=== PATIENT | male | born 1970 | race Caucasian/White ===

== ENCOUNTER 2019-06-22 13:54 | Inpatient (IN) | payer SELFPAY ==
[2019-06-22] VITALS (8 sets, daily range): BP systolic 119–161; BP diastolic 87–101
[~2019-06-22] VITALS: Ht 177.8 cm; Wt 122.2 kg
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
--- OUTSIDE RECORDS SUMMARY | 2019-06-22 14:03 | XMS REPORT | Continuity of Care Document ---
Author Organization Unknown Address Unknown Phone Unavailable Allergies There is no data. Medications There is no data. Problems There is no data. Procedures There is no data. Results There is no data. Encounters ACCT No. Visit Date/Time Discharge Status Pt. Type Provider Facility Loc./Unit Complaint [id number] 06/05/2019 10:40:00 06/05/2019 23:59: 59 CLS Outpatient [facility] [address]
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
[2019-06-22 14:13] LABS: BASOPHILS % (AUTO) 0 % (0-10); EOSINOPHILS # (AUTO) 0.2 10^3/uL (0.0-0.3); EOSINOPHILS % (AUTO) 3 % (0-10); HEMATOCRIT 25 % (40-54); LYMPHOCYTES # (AUTO) 1.4 X 10^3 (1.0-4.0); LYMPHOCYTES % (AUTO) 19 % (12-44); MEAN CORPUSCULAR HEMOGLOBIN 16 PG (25-34); MEAN CORPUSCULAR HGB CONC 26 G/DL (32-36); MEAN CORPUSCULAR VOLUME 61 FL (80-99); MEAN PLATELET VOLUME 9.2 FL (7.4-10.4); MONOCYTES # (AUTO) 0.6 X 10^3 (0.0-1.0); MONOCYTES % (AUTO) 8 % (0-12); NEUTROPHILS # (AUTO) 5.1 X 10^3 (1.8-7.8); NEUTROPHILS % (AUTO) 70 % (42-75); PLATELET COUNT 342 10^3/uL (130-400); RED CELL DISTRIBUTION WIDTH 19.5 % (10.0-14.5); WHITE BLOOD COUNT 7.3 10^3/uL (4.3-11.0)
--- NOTE | 2019-06-22 14:13 | ED Dyspnea ---
General Stated Complaint: BLOOD CLOT Source of Information: Patient Exam Limitations: No Limitations History of Present Illness Date Seen by Provider: June 22, 2019 Time Seen by Provider: 14:10 Initial Comments To ER from [facility] in [place] with reports of worsening shortness of breath. He has COPD and has a chronic cough and shortness of breath. He was seen at [facility] in [place] today diagnosed with DVT by ultrasound in the right lower extremity. Provider was out of the office and he was referred here for management. He does report an unintentional weight loss over the past few weeks, no history of cancer. 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 Father of lung cancer. Right leg has been swollen and painful for about 3 weeks Timing/Duration: Increasing, Other Severity: Moderate Associated Symptoms: Cough Allergies and Home Medications Allergies Coded Allergies: No Known Drug Allergies (Unverified , 06/22/19) Home Medications Albuterol Sulfate 1 Puff Puff, 2 PUFF INH Q4H, (Reported) 1 PUFF = 90 MCG Patient Home Medication List Home Medication List Reviewed: Yes Review of Systems Review of Systems Constitutional: see HPI EENTM: see HPI Respiratory: see HPI, cough, short of breath Cardiovascular: no symptoms reported Genitourinary: no symptoms reported Musculoskeletal: see HPI Skin: no symptoms reported Psychiatric/Neurological: No Symptoms Reported Endocrine: No Symptoms Reported Hematologic/Lymphatic: No Symptoms Reported Past Iiyvxxo-Bgybmb-Dtgaju Hx Patient Social History Recent Foreign Travel: No Contact w/Someone Who Travel: No Physical Exam Vital Signs Vital Signs - First Documented 06/22/19 14:13 Temp 36.7 Pulse 92 Resp 18 B/P (MAP) 145/100 (115) Pulse Ox 97 O2 Delivery Room Air Capillary Refill : Height, Weight, BMI Height: '" Weight: lbs. oz. kg; BMI Method: General Appearance: No Apparent Distress, WD/WN, Other (lungs are clear with good air movement no distress heart rate 87 oxygen 97% room air respiratory rate 16 blood pressure 145/100.) HEENT: PERRL/EOMI, Normal ENT Inspection Neck: Full Range of Motion, Normal Inspection Respiratory: Normal Breath Sounds, No Accessory Muscle Use, No Respiratory Distress Cardiovascular: Regular Rate, Rhythm, Normal Peripheral Pulses Gastrointestinal: Non Tender, Soft Extremity: Normal Capillary Refill, Normal Inspection Neurologic/Psychiatric: Alert, Oriented x3 Skin: Normal Color, Warm/Dry Progress/Results/Core Measures Results/Orders Lab Results Laboratory Tests Test 06/22/19 14:03 06/22/19 14:26 Range/Units White Blood Count 7.3 4.3-11.0 10^3/uL Red Blood Count 4.12 L 4.35-5.85 10^6/uL Hemoglobin 6.6 *L 13.3-17.7 G/DL Hematocrit 25 L 40-54 % Mean Corpuscular Volume 61 L 80-99 FL Mean Corpuscular Hemoglobin 16 L 25-34 PG Mean Corpuscular Hemoglobin Concent 26 L 32-36 G/DL Red Cell Distribution Width 19.5 H 10.0-14.5 % Platelet Count 342 130-400 10^3/uL Mean Platelet Volume 9.2 7.4-10.4 FL Neutrophils (%) (Auto) 70 42-75 % Lymphocytes (%) (Auto) 19 12-44 % Monocytes (%) (Auto) 8 0-12 % Eosinophils (%) (Auto) 3 0-10 % Basophils (%) (Auto) 0 0-10 % Neutrophils # (Auto) 5.1 1.8-7.8 X 10^3 Lymphocytes # (Auto) 1.4 1.0-4.0 X 10^3 Monocytes # (Auto) 0.6 0.0-1.0 X 10^3 Eosinophils # (Auto) 0.2 0.0-0.3 10^3/uL Basophils # (Auto) 0.0 0.0-0.1 10^3/uL Sodium Level 138 135-145 MMOL/L Potassium Level 4.0 3.6-5.0 MMOL/L Chloride Level 106 98-107 MMOL/L Carbon Dioxide Level 24 21-32 MMOL/L Anion Gap 8 5-14 MMOL/L Blood Urea Nitrogen 19 H 7-18 MG/DL Creatinine 1.76 H 0.60-1.30 MG/DL Estimat Glomerular Filtration Rate 41 BUN/Creatinine Ratio 11 Glucose Level 135 H 70-105 MG/DL Calcium Level 8.6 8.5-10.1 MG/DL Corrected Calcium 8.8 8.5-10.1 MG/DL Total Bilirubin 0.8 0.1-1.0 MG/DL Aspartate Amino Transf (AST/SGOT) 15 5-34 U/L Alanine Aminotransferase (ALT/SGPT) 10 0-55 U/L Alkaline Phosphatase 100 40-136 U/L Total Protein 6.6 6.4-8.2 GM/DL Albumin 3.7 3.2-4.5 GM/DL Prothrombin Time 13.9 12.2-14.7 SEC INR Comment 1.0 0.8-1.4 D-Dimer 1.56 H 0.00-0.49 UG/ML My Orders Orders - YARI GOSS APRN Fibrin Degradation Products (06/22/19 14:06) Cbc With Automated Diff (06/22/19 14:06) Comprehensive Metabolic Panel (06/22/19 14:06) Ed Iv/Invasive Line Start (06/22/19 14:06) Protime With Inr (06/22/19 14:08) Red Cells Leukocytes Reduced (06/22/19 14:20) Type And Screen (06/22/19 14:20) Iron Tibc %Sat & Ferritin (06/22/19 14:50) BNP (06/22/19 14:51) Chest 1 View, Ap/Pa Only (06/22/19 14:51) Ekg Tracing (06/22/19 14:51) Vital Signs/I&O 06/22/19 14:13 Temp 36.7 Pulse 92 Resp 18 B/P (MAP) 145/100 (115) Pulse Ox 97 O2 Delivery Room Air Departure Communication (Admissions) Time/Spoke to Admitting Phy: 15:00 He does report a history of ulcerative colitis. He's had to receive a blood transfusion because of this in the past. Takes no medication for it. Based on Cr, weight, height, and age, his estimated gfr is 66 mL/min which does not require change in lovenox dose. Spoke with Dr Phoenix, would like therapeutic dose lovenox, will dc if he develops bleeding. Specifically questioned the patient about bloody stools and he is adamant there are no dark or grossly bloody stools. 1426- R called her I did obtain right lower extremity venous Doppler ultrasound which was done today first 2019 at [facility]. This has been faxed to us and shows an occlusive thrombus in the right femoral vein extending into the popliteal vein. Spoke with Dr. Cho, we'll admit, transfuse 1 unit of packed red cells, Venofer 200 mg IV every 48 hours. Impression Primary Impression: Right leg DVT Qualified Codes: I82.401 - Acute embolism and thrombosis of unspecified deep veins of right lower extremity Disposition: ADMITTED INPATIENT Condition: Stable Admissions Decision to Admit Reason: Admit from ER (General) Decision to Admit/Date: June 22, 2019 Time/Decision to Admit Time: 15:01 Departure-Patient Inst. Referrals: [facility] (PCP[facility]Family) Primary Care Physician YARI GOSS LUMBER CUTTER June 22, 2019 14:13
[2019-06-22 14:19] LABS: HEMOGLOBIN 6.6 G/DL (13.3-17.7)
--- NOTE | 2019-06-22 14:28 | NUR ---
Blood band placed on patient. Type and Screen drawn on patient.
--- NOTE | 2019-06-22 14:29 | NUR ---
Patient states he has a history of ulcerative colitis. He states he has had previous blood transfusions.
[2019-06-22] MEDS ORDERED: HOLD METFORMIN - RECEIVED CONTRAST 20 ML VIAL IV SCH (14:30)
[2019-06-22] MEDS ORDERED: CATHETER FLUSH 10 ML SYR IV PRN (14:30)
[2019-06-22] MEDS ORDERED: IOHEXOL 350 MG/ML 100 ML (OMNIPAQUE 350) VIAL IV ONE (14:30)
[2019-06-22] MEDS ORDERED: NS 100 ML (IVPB) BAG IV ONE (14:30)
[2019-06-22] MEDS ORDERED: RT-ALBUINH INH (14:32)
[2019-06-22 14:34] LABS: ALBUMIN 3.7 GM/DL (3.2-4.5); BILIRUBIN,TOTAL 0.8 MG/DL (0.1-1.0); CALCIUM 8.6 MG/DL (8.5-10.1); CREATININE SERUM 1.76 MG/DL (0.60-1.30); TOTAL PROTEIN 6.6 GM/DL (6.4-8.2)
[2019-06-22 14:48] LABS: FIBRIN DEGRADATION PRODUCTS 1.56 UG/ML (0.00-0.49); PROTHROMBIN TIME PATIENT 13.9 SEC (12.2-14.7)
[2019-06-22] MEDS ORDERED: FURO-125 PO (15:01)
--- NOTE | 2019-06-22 15:48 | Diagnostic Imaging Report ---
INDICATION: Shortness of breath and COPD. TIME OF EXAM: 03:14 p.m. COMPARISON: No prior studies are available for comparison. FINDINGS: The heart does appear to be mildly enlarged. Lungs are clear. No infiltrates are seen. The pulmonary vascularity is normal. No effusion or pneumothorax is detected. IMPRESSION: No acute cardiopulmonary process is detected. Dictated by: Dictated on workstation # [id number]
--- OUTSIDE RECORDS SUMMARY | 2019-06-22 15:49 | XMS REPORT | Continuity of Care Document ---
Author Organization Unknown Address Unknown Phone Unavailable Allergies Active Description Code Type Severity Reaction Onset Reported/Identified Relationship to Patient Clinical Status Yes No Allergy Information Available [id number] Drug Allergy Unknown N/A 020 Yes No Known Drug Allergies [id number] Drug Allergy Unknown N/A 06/22/2019 Medications There is no data. Problems There is no data. Procedures There is no data. Results Test Result Range Complete blood count (CBC) with automate d white blood cell (WBC) differential - 06/22/19 14:03 Blood leukocytes automated count (number/volume) 7.3 10*3/uL 4.3-11.0 Blood erythrocytes automated count (number/volume) 4.12 10*6/uL 4.35-5.85 Venous blood hemoglobin measurement (mass/volume) 6.6 g/dL 13.3-17.7 Blood hematocrit (volume fraction) 25 % 40-54 Automated erythrocyte mean corpuscular volume 61 [ foz_us] 80-99 Automated erythrocyte mean corpuscular h emoglobin (mass per erythrocyte) 16 pg 25-34 Automated erythrocyte mean corpuscular h emoglobin concentration measurement (mass/volume) 26 g/dL 32-36 Automated erythrocyte distribution width ratio 19. 5 % 10.0- 14.5 Automated blood platelet count (count/volume) 342 10*3/uL 130-400 Automated blood platelet mean volume measurement 9.2 [foz_us] 7.4-10.4 Automated blood neutrophils/100 leukocytes 70 % 42-75 Automated blood lymphocytes/100 leukocytes 19 % 12-44 Blood monocytes/100 leukocytes 8 % 0-12 Automated blood eosinophils/100 leukocytes 3 % 0-10 Automated blood basophils/100 leukocytes 0 % 0-10 Blood neutrophils automated count (number/volume) 5.1 10*3 1.8-7.8 Blood lymphocytes automated count (number/volume) 1.4 10*3 1.0-4.0 Blood monocytes automated count (number/volume) 0. 6 10*3 0.0-1.0 Automated eosinophil count 0.2 10*3/uL 0 .0-0.3 Automated blood basophil count (count/volume) 0.0 10*3/uL 0.0-0.1 Comprehensive metabolic panel - 06/22/19 14:03 Serum or plasma sodium measurement (moles/volume) 138 mmol/L 135-145 Serum or plasma potassium measurement (moles/volume) 4.0 mmol/L 3.6-5.0 Serum or plasma chloride measurement (moles/volume) 106 mmol/L 98-107 Carbon dioxide 24 mmol/L 21-32 Serum or plasma anion gap determination (moles/volume) 8 mmol/L 5-14 Serum or plasma urea nitrogen measurement (mass/volume ) 19 mg/dL 7-18 Serum or plasma creatinine measurement (mass/volume) 1.76 mg/dL 0.60-1.30 Serum or plasma urea nitrogen/creatinine mass ratio 11 NRG Serum or plasma creatinine measurement w ith calculation of estimated glomerular filtration rate 41 NRG Serum or plasma glucose measurement (mass/volume) 135 mg/dL 70-105 Serum or plasma calcium measurement (mass/volume) 8.6 mg/dL 8.5-10.1 Serum or plasma total bilirubin measurement (mass/volu me) 0.8 mg/dL 0.1-1.0 Serum or plasma alkaline phosphatase marivel surement (enzymatic activity/volume) 100 U/L 40-136 Serum or plasma aspartate aminotransfera se measurement (enzymatic activity/volume) 15 U/L 5-34 Serum or plasma alanine aminotransferase measurement (enzymatic activity/volume) 10 U/L 0-55 Serum or plasma protein measurement (mass/volume) 6.6 g/dL 6.4-8.2 Serum or plasma albumin measurement (mass/volume) 3.7 g/dL 3.2-4.5 CALCIUM CORRECTED 8.8 mg/dL 8.5-10.1 Serum or plasma lithium measurement (mol es/volume) - 06/22/19 14:03 BNP PT 448.6 pg/mL <100.0 RED CELLS LEUKO REDUCED AS1 - 06/22/19 1 4:26 RED CELLS LEUKO REDUCED AS1 R RUTH NRG Blood type T Indirect antibody screen pa pascual - 06/22/19 14:26 WRISTBAND NUMBER [id number] NRG ABO+Rh group AN NRG Blood group antibody screen NEGATIVE NR G PT panel in platelet poor plasma by coag ulation assay - 06/22/19 14:26 Prothrombin time (PT) in platelet poor plasma by coagu lation assay 13.9 s 12.2-14.7 INR in platelet poor plasma or blood by coagulation as say 1.0 0.8-1.4 Fibrin D-dimer FEU measurement in platel et poor plasma (mass/volume) - 06/22/19 14:26 Fibrin D-dimer FEU measurement in platelet poor plasma (mass/volume) 1.56 ug/mL 0.00-0.49 Encounters ACCT No. Visit Date/Time Discharge Status Pt. Type Provider Facility Loc./Unit Complaint [id number] 06/05/2019 10:40:00 06/05/2019 23:59: 59 CLS Outpatient [facility] [address] [id number] 06/22/2019 14:53:[address] Inpatient JENNIFER HAYS DO [facility] ICU DVT,ANEMIA
--- NOTE | 2019-06-22 15:50 | NUR ---
Report given to Agustina MENDIETA in ICU.
[2019-06-22] MEDS ORDERED: NS (IVPB) 100 ML ONE (16:07)
[2019-06-22] MEDS ORDERED: ENOXAPARIN 300 MG/3 ML (LOVENOX) MULTI-DOSE VIAL SQ SCH (16:30)
[2019-06-22] MEDS ORDERED: NS IV 500 ML 500 ML IV SCH (16:45)
[2019-06-22] MEDS ORDERED: IRON SUCROSE 200 MG/10 ML (VENOFER) VIAL IV SCH (17:00)
[2019-06-22] MEDS ORDERED: RT-ALBUTEROL/IPRATROPIUM 3 ML (DUONEB) VIAL INH SCH (18:00)
[2019-06-22] MEDS: NS IV 1000 ML 1,000 ML IV SCH (18:07)
--- NOTE | 2019-06-22 18:41 | CONSULTATION REPORT ---
DATE OF SERVICE: 06/22/2019 ATTENDING PRIMARY CARE PHYSICIAN: [facility]. ADMITTING PHYSICIAN: Dr. Cho. HISTORY OF PRESENT ILLNESS: The patient is a 48-year-old male who presented to [facility] and underwent an ultrasound due to right lower extremity edema and pain and was found to have deep vein thrombosis. He states that this has been swollen and painful for the past three weeks. He has not had this before in the past. He also does report worsening shortness of breath; however, he does have a history of COPD. Upon admission, he was also found to be anemic with hemoglobin of 6.6. He does not report any history of gastroesophageal reflux disease nor peptic ulcer disease. He does not report any epigastric pain or burning sensation. He also does not report any episodes of red blood per rectum nor any dark tarry stools. He is also scheduled to undergo a CT angiography of the chest as well. PAST MEDICAL HISTORY: COPD. PAST SURGICAL HISTORY: None reported. ALLERGIES: No known drug allergies. MEDICATIONS: Albuterol MDI 2 puffs q.4 hours p.r.n. 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 Negative alcohol. FAMILY HISTORY: Father with lung cancer. VITAL SIGNS: Temperature 36.7, blood pressure 145/100, pulse 92, respirations 18, pulse oximetry 97% on room air. REVIEW OF SYSTEMS: A well-nourished male currently in no acute distress. He is not experiencing any shortness of breath or no difficulty breathing at rest. He does have a chronic cough, which is nonproductive. No hemoptysis. No history of gastroesophageal reflux disease as well as peptic ulcer disease and no episodes of hematemesis, no coffee ground emesis. He has had some constipation in the past. He does not report any red blood per rectum nor any dark tarry stools. No fever, chills and states that he has lost some weight in the past 3 weeks. All other review of systems negative. PHYSICAL EXAMINATION: CHEST: A few scattered rales and rhonchi bilaterally with distant breath sounds. HEART: Regular, no murmurs. EXTREMITIES: Right lower extremity swelling. Positive Homans sign, posterior tibial and dorsalis pedis pulses palpable bilaterally. HEENT: No scleral icterus. NECK: No cervical lymphadenopathy. ABDOMEN: Soft, nontender, nondistended. SKIN: Warm, dry. LABORATORY DATA: Hemoglobin 6.6, hematocrit 65, platelets 342, WBC 7.3. BUN 19, creatinine 1.76. BNP 448.6. D-dimer 1.56. ASSESSMENT AND PLAN: A 48-year-old male with right lower extremity DVT, shortness of breath as well as anemia and previous history of underlying respiratory medical comorbidities. It is unsure if this anemia is an acute on chronic entity. Due to the findings of the lower extremity edema as well as possible pulmonary embolism. We will recommend starting him on therapeutic doses of Lovenox. However, if he does develop clinical bleeding, we will discontinue all anticoagulation and proceed with further workup, which may include an EGD and colonoscopy. Also, if there is a contraindication to anticoagulation he will need an inferior vena cava filter placement. Job ID: [id number] DocumentID: [id number] Dictated Date: 06/22/2019 18:11:17 Payroll Tax Specialist Date: 06/22/2019 18:40:34 Dictated By: ERIK TELLEZ MD
--- NOTE | 2019-06-22 20:46 | History & Physical-Hospitalist ---
History of Present Illness HPI/Chief Complaint CC: Anemia with right acute DVT of lower extremity HPI: This is a 48yoWM who presented to the ER upon the direction of his PCP Andrea Phillips due to dx of right lower extremity DVT in need of w/u due to dyspnea. Patient was found to have hgb 6.6 in need of transfusion. Patient states he has colitis but does not take meds for that condition. Patient is not pleased about staying in the hospital because he just received his stimulus check and was going to clean his truck and instead he is inpatient. He attempted to leave AMA twice but he has reluctantly stayed but insists on dc home in the morning and we will arrange OAC coupon to pharmacy at that time. Source: patient, RN/MD Exam Limitations: no limitations Date Seen 06/22/19 Time Seen by a Provider: 17:45 Attending Physician Alissa Cho DO PCP [place] [facility] Referring Physician Date of Admission June 22, 2019 at 14:53 Home Medications & Allergies Home Medications Reviewed patient Home Medication Reconciliation performed by pharmacy medication reconciliations surface water technician and/or nursing. Patients Allergies have been reviewed. 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 ) Review of Systems Constitutional: see HPI Physical Exam Physical Exam Vital Signs Vital Signs - First Documented 06/22/19 06/22/19 14:13 22:40 Temp 36.7 Pulse 92 Resp 18 B/P (MAP) 145/100 (115) Pulse Ox 97 O2 Delivery Room Air O2 Flow Rate 2.00 Capillary Refill : Less Than 3 Seconds Height, Weight, BMI Height: '" Weight: lbs. oz. kg; 38.00 BMI Method: General Appearance: No Apparent Distress, Chronically ill Eyes: Right Eye Normal Inspection, Right Eye PERRL HEENT: PERRL/EOMI, Normal ENT Inspection, Pharynx Normal, Moist Mucous Membranes Neck: Full Range of Motion, Normal Inspection, Non Tender Respiratory: Chest Non Tender, Lungs Clear, Normal Breath Sounds, No Accessory Muscle Use, No Respiratory Distress Cardiovascular: Regular Rate, Rhythm, No Gallop, No JVD, No Murmur, Normal Peripheral Pulses Gastrointestinal: Normal Bowel Sounds, No Organomegaly, No Pulsatile Mass, Non Tender, Soft Back: Normal Inspection, No CVA Tenderness, No Vertebral Tenderness Extremity: Normal Capillary Refill, Normal Inspection, Normal Range of Motion, Non Tender, No Calf Tenderness, Calf Tenderness, Pedal Edema Neurologic/Psychiatric: Alert, Oriented x3, No Motor/Sensory Deficits, Normal Mood/Affect Skin: Normal Color, Warm/Dry Lymphatic: No Adenopathy Results Results/Procedures Labs Laboratory Tests 06/22/19 14:03 06/22/19 21:35 06/23/19 03:52 Patient resulted labs reviewed. Assessment/Plan Admission Diagnosis Assessment: Severe anemia with dyspnea Acute right DVT lower extremity h/o colitis but no medication for that condition Plan: Can't have contrast for CT angiogram and would not change treatment with anticoagulation Wants to leave [facility] Surgery consult Tranfusion Admission Status: Inpatient Order (span 2 midnights) Reason for Inpatient Admission: severe anemia with acute DVT in need of anticoagulation Diagnosis/Problems Diagnosis/Problems (1) Anemia (2) Right leg DVT Status: Acute Qualifiers: Affected thrombotic vein of extremity: unspecified vein of extremity Chronicity: acute Qualified Codes: I82.401 - Acute embolism and thrombosis of unspecified deep veins of right lower extremity Clinical Quality Measures DVT/VTE Risk/Contraindication: Risk Factor Score Per Nursin RFS Level Per Nursing on Admit: 4+=Very High ALISSA CHO DO June 22, 2019 20:46
[2019-06-22] MEDS ORDERED: DOCUSATE SODIUM 100 MG (COLACE) CAP PO PRN (21:00)
[2019-06-22] MEDS ORDERED: ONDANSETRON 4 MG (ZOFRAN) ORAL DISSOLVE TAB PO PRN (21:00)
[2019-06-22] MEDS ORDERED: ACETAMINOPHEN 500 MG TAB (TYLENOL) PO PRN (21:00)
[2019-06-22] MEDS ORDERED: CALCIUM CARBONATE 500 MG (TUMS) TAB.CHEW PO PRN (21:00)
[2019-06-22] MEDS ORDERED: LOPERAMIDE 2 MG (IMODIUM) TABLET PO PRN (21:00)
[2019-06-22] MEDS ORDERED: ONDANSETRON 4 MG/2 ML (SDV) Z0FRAN IVP PRN (21:00)
[2019-06-22] MEDS ORDERED: diphenhydrAMINE 25 MG TAB (BENADRYL) PO PRN (21:00)
[2019-06-22] MEDS ORDERED: ALPRAZolam 0.25 MG (XANAX) TAB PO PRN (21:00)
[2019-06-22] MEDS: SENNA W/DOCUSATE (SENOKOT S) TABLET PO SCH (21:00)
[2019-06-22] MEDS ORDERED: MELATONIN 3 MG TABLET PO PRN (21:00)
[2019-06-22] MEDS ORDERED: HYDROcodone/APAP 5 MG/325 MG (LORTAB) TAB PO PRN (21:00)
[2019-06-23] VITALS: BP 159/105
[2019-06-23 00:33] VITALS: BP 159/90
[2019-06-23 04:31] VITALS: BP 154/101
[2019-06-23 04:38] LABS: ALBUMIN 3.4 GM/DL (3.2-4.5); BASOPHILS % (AUTO) 1 % (0-10); BILIRUBIN,TOTAL 1.6 MG/DL (0.1-1.0); CALCIUM 8.2 MG/DL (8.5-10.1); CREATININE SERUM 1.37 MG/DL (0.60-1.30); EOSINOPHILS # (AUTO) 0.3 10^3/uL (0.0-0.3); EOSINOPHILS % (AUTO) 4 % (0-10); HEMATOCRIT 25 % (40-54); LYMPHOCYTES # (AUTO) 1.4 X 10^3 (1.0-4.0); LYMPHOCYTES % (AUTO) 22 % (12-44); MEAN CORPUSCULAR HEMOGLOBIN 17 PG (25-34); MEAN CORPUSCULAR HGB CONC 28 G/DL (32-36); MEAN CORPUSCULAR VOLUME 61 FL (80-99); MONOCYTES # (AUTO) 0.6 X 10^3 (0.0-1.0); MONOCYTES % (AUTO) 9 % (0-12); NEUTROPHILS # (AUTO) 3.9 X 10^3 (1.8-7.8); NEUTROPHILS % (AUTO) 64 % (42-75); PLATELET COUNT 312 10^3/uL (130-400); POTASSIUM 3.9 MMOL/L (3.6-5.0); RED CELL DISTRIBUTION WIDTH 20.2 % (10.0-14.5); WHITE BLOOD COUNT 6.1 10^3/uL (4.3-11.0)
[2019-06-23] MEDS: NS IV 1000 ML 1,000 ML IV SCH (05:02)
[2019-06-23] MEDS ORDERED: ENOXAPARIN 300 MG/3 ML (LOVENOX) MULTI-DOSE VIAL SQ SCH (06:00)
[2019-06-23] MEDS: RT-ALBUTEROL/IPRATROPIUM 3 ML (DUONEB) VIAL INH SCH ×2 (06:57→10:25)
[2019-06-23] MEDS: SENNA W/DOCUSATE (SENOKOT S) TABLET PO SCH (08:46)
[2019-06-23] MEDS ORDERED: PANTOPRAZOLE 40 MG (PROTONIX) VIAL IV SCH (09:00)
--- NOTE | 2019-06-23 11:07 | Progress Note ---
Subjective Date Seen by a Provider: June 23, 2019 Time Seen by a Provider: 11:00 Subjective/Events-last exam doing ok. slightly less edema left calf. no signs clinical bleed. hx of ulcerative colitis and non-compliant with meds. Objective Exam Vital Signs Date Time Temp Pulse Resp B/P (MAP) Pulse Ox O2 Delivery O2 Flow Rate FiO2 06/23/19 10:26 97 Nasal Cannula 2.00 06/23/19 09:00 96 Nasal Cannula 2.00 06/23/19 07:26 36.6 06/23/19 07:00 88 06/23/19 06:58 95 Nasal Cannula 2.00 06/23/19 04:31 36.4 78 20 154/101 (118) 100 Nasal Cannula 2.00 06/23/19 03:05 Nasal Cannula 4.00 06/23/19 01:00 76 06/23/19 00:33 36.8 84 98 06/23/19 00:00 75 20 159/105 (123) 94 Nasal Cannula 2.00 06/23/19 00:00 36.0 06/22/19 22:40 Nasal Cannula 2.00 06/22/19 21:00 96 Room Air 06/22/19 20:00 36.3 82 20 139/92 (108) 94 Room Air 06/22/19 19:00 90 06/22/19 18:00 83 29 157/101 (119) 95 Room Air 06/22/19 17:50 36.8 80 17 161/96 96 Room Air 06/22/19 17:00 83 26 161/96 (117) 94 Room Air 06/22/19 16:54 36.8 84 98 06/22/19 16:46 36.8 84 27 159/90 98 Room Air 06/22/19 16:43 95 Room Air 06/22/19 16:36 36.6 76 16 119/87 96 Room Air 06/22/19 16:34 85 06/22/19 16:31 36.7 80 23 150/94 95 Room Air 06/22/19 16:00 37.0 91 16 145/96 96 Room Air 06/22/19 14:13 36.7 92 18 145/100 (115) 97 Room Air I & O 06/23/19 07:00 Intake Total 494 ml Output Total 400 ml Balance 94 ml Capillary Refill : Less Than 3 Seconds General Appearance: No Apparent Distress HEENT: PERRL/EOMI Neck: Full Range of Motion Respiratory: Chest Non Tender, Normal Breath Sounds Cardiovascular: Regular Rate, Rhythm Gastrointestinal: normal bowel sounds, non tender, soft Extremity: Normal Capillary Refill, Calf Tenderness Neurologic/Psychiatric: Alert, Oriented x3 Skin: Normal Color Lymphatic: No Adenopathy Results Lab Laboratory Tests 06/22/19 14:03: White Blood Count 7.3, Red Blood Count 4.12L, Hemoglobin 6.6*L, Hematocrit 25L, Mean Corpuscular Volume 61L, Mean Corpuscular Hemoglobin 16L, Mean Corpuscular Hemoglobin Concent 26L, Red Cell Distribution Width 19.5H, Platelet Count 342, Mean Platelet Volume 9.2, Neutrophils (%) (Auto) 70, Lymphocytes (%) (Auto) 19, Monocytes (%) (Auto) 8, Eosinophils (%) (Auto) 3, Basophils (%) (Auto) 0, Neutrophils # (Auto) 5.1, Lymphocytes # (Auto) 1.4, Monocytes # (Auto) 0.6, Eosinophils # (Auto) 0.2, Basophils # (Auto) 0.0, Sodium Level 138, Potassium Level 4.0, Chloride Level 106, Carbon Dioxide Level 24, Anion Gap 8, Blood Urea Nitrogen 19H, Creatinine 1.76H, Estimat Glomerular Filtration Rate 41, BUN/Creatinine Ratio 11, Glucose Level 135H, Calcium Level 8.6, Corrected Calcium 8.8, Iron Level 13L, Total Iron Binding Capacity 383H, Unsaturated Iron Binding Capacity 370, Transferrin % Saturation 3L, Ferritin 9.9L, Total Bilirubin 0.8, Aspartate Amino Transf (AST/SGOT) 15, Alanine Aminotransferase (ALT/SGPT) 10, Alkaline Phosphatase 100, Troponin I < 0.028, B-Type Natriuretic Peptide 448.6H, Total Protein 6.6, Albumin 3.7 06/22/19 14:26: Prothrombin Time 13.9, INR Comment 1.0, D-Dimer 1.56H 06/22/19 21:35: Hemoglobin 7.0L, Hematocrit 25L 06/23/19 03:52: White Blood Count 6.1, Red Blood Count 4.08L, Hemoglobin 7.0L, Hematocrit 25L, Mean Corpuscular Volume 61L, Mean Corpuscular Hemoglobin 17L, Mean Corpuscular Hemoglobin Concent 28L, Red Cell Distribution Width 20.2H, Platelet Count 312, Mean Platelet Volume 9.0, Neutrophils (%) (Auto) 64, Lymphocytes (%) (Auto) 22, Monocytes (%) (Auto) 9, Eosinophils (%) (Auto) 4, Basophils (%) (Auto) 1, Neutrophils # (Auto) 3.9, Lymphocytes # (Auto) 1.4, Monocytes # (Auto) 0.6, Eosinophils # (Auto) 0.3, Basophils # (Auto) 0.0, Sodium Level 137, Potassium Level 3.9, Chloride Level 107, Carbon Dioxide Level 20L, Anion Gap 10, Blood Urea Nitrogen 17, Creatinine 1.37H, Estimat Glomerular Filtration Rate 55, BUN/Creatinine Ratio 12, Glucose Level 87, Calcium Level 8.2L, Corrected Calcium 8.7, Total Bilirubin 1.6H, Aspartate Amino Transf (AST/SGOT) 16, Alanine Aminotransferase (ALT/SGPT) 9, Alkaline Phosphatase 95, Total Protein 6.0L, Albumin 3.4 Assessment/Plan Assessment/Plan Assess & Plan/Chief Complaint right lower extremity DVT. on therapeautic lovenox and no clinical bleed. will need upper and lower endoscopy at some point. Clinical Quality Measures DVT/VTE Risk/Contraindication: Risk Factor Score Per Nursin RFS Level Per Nursing on Admit: 4+=Very High ERIK TELLEZ MD June 23, 2019 11:07
[2019-06-23] MEDS ORDERED: APIX5TAB PO (11:19)
--- NOTE | 2019-06-23 11:20 | Discharge Summary ---
Discharge Summary Hospital Course Was the Problem List Reviewed?: Yes Problems/Dx: (1) Anemia (2) Right leg DVT Status: Acute Qualifiers: Qualified Codes: I82.401 - Acute embolism and thrombosis of unspecified deep veins of right lower extremity Hospital Course Date of Admission: June 22, 2019 at 14:53 Admission Diagnosis : Family Physician/Provider: Isidro Justin - [facility] Date of Discharge: 06/23/19 Discharge Diagnosis: Acute right leg DVT, presumed PE but creatinine too high for CT angiogram and ECHO essentially confirms and patient declines more tests, Severe anemia 6.6 s/p 1 unit of blood along with Venofer 200mg dose Hospital Course: Patient had a short course since he threatened to leave AMA 6 times. Patient declined any further testing but PE was presumed given findings on ECHO and considering CT angiogram could not be done in ER due to creatinine elevation it was decided that it would not change the treatment plan given Eliquis was started and he was insistent on DC so he will see pcp on Tuesday for hgb check and he needs endoscopy but declines. Labs and Pending Lab Test: Laboratory Tests 06/22/19 14:03: White Blood Count 7.3, Red Blood Count 4.12L, Hemoglobin 6.6*L, Hematocrit 25L, Mean Corpuscular Volume 61L, Mean Corpuscular Hemoglobin 16L, Mean Corpuscular Hemoglobin Concent 26L, Red Cell Distribution Width 19.5H, Platelet Count 342, Mean Platelet Volume 9.2, Neutrophils (%) (Auto) 70, Lymphocytes (%) (Auto) 19, Monocytes (%) (Auto) 8, Eosinophils (%) (Auto) 3, Basophils (%) (Auto) 0, Neutrophils # (Auto) 5.1, Lymphocytes # (Auto) 1.4, Monocytes # (Auto) 0.6, Eosinophils # (Auto) 0.2, Basophils # (Auto) 0.0, Sodium Level 138, Potassium Level 4.0, Chloride Level 106, Carbon Dioxide Level 24, Anion Gap 8, Blood Urea Nitrogen 19H, Creatinine 1.76H, Estimat Glomerular Filtration Rate 41, BUN/Creatinine Ratio 11, Glucose Level 135H, Calcium Level 8.6, Corrected Calcium 8.8, Iron Level 13L, Total Iron Binding Capacity 383H, Unsaturated Iron Binding Capacity 370, Transferrin % Saturation 3L, Ferritin 9.9L, Total Bilirubin 0.8, Aspartate Amino Transf (AST/SGOT) 15, Alanine Aminotransferase (ALT/SGPT) 10, Alkaline Phosphatase 100, Troponin I < 0.028, B-Type Natriuretic Peptide 448.6H, Total Protein 6.6, Albumin 3.7 06/22/19 14:26: Prothrombin Time 13.9, INR Comment 1.0, D-Dimer 1.56H 06/22/19 21:35: Hemoglobin 7.0L, Hematocrit 25L 06/23/19 03:52: White Blood Count 6.1, Red Blood Count 4.08L, Hemoglobin 7.0L, Hematocrit 25L, Mean Corpuscular Volume 61L, Mean Corpuscular Hemoglobin 17L, Mean Corpuscular Hemoglobin Concent 28L, Red Cell Distribution Width 20.2H, Platelet Count 312, Mean Platelet Volume 9.0, Neutrophils (%) (Auto) 64, Lymphocytes (%) (Auto) 22, Monocytes (%) (Auto) 9, Eosinophils (%) (Auto) 4, Basophils (%) (Auto) 1, Neutrophils # (Auto) 3.9, Lymphocytes # (Auto) 1.4, Monocytes # (Auto) 0.6, Eosinophils # (Auto) 0.3, Basophils # (Auto) 0.0, Sodium Level 137, Potassium Level 3.9, Chloride Level 107, Carbon Dioxide Level 20L, Anion Gap 10, Blood Urea Nitrogen 17, Creatinine 1.37H, Estimat Glomerular Filtration Rate 55, BUN/Creatinine Ratio 12, Glucose Level 87, Calcium Level 8.2L, Corrected Calcium 8.7, Total Bilirubin 1.6H, Aspartate Amino Transf (AST/SGOT) 16, Alanine Rodriguez otransferase (ALT/SGPT) 9, Alkaline Phosphatase 95, Total Protein 6.0L, Albumin 3.4 Home Meds Active Reported Lasix (Furosemide) 20 Mg Tablet 20 Mg PO DAILY Ventolin Hfa (Albuterol Sulfate) 1 Puff Puff 2 Puff INH Q4H 1 PUFF = 90 MCG Assessment/Pt Instructions PCP Andrea Phillips Tuesday Discharge Planning: <30 minutes discharge planning Discharge Instructions Discharge Diet: No Restrictions Discharge Physical Examination Vital Signs Vital Signs Date Time Temp Pulse Resp B/P (MAP) Pulse Ox O2 Delivery O2 Flow Rate FiO2 06/23/19 10:26 97 Nasal Cannula 2.00 06/23/19 07:26 36.6 06/23/19 07:00 88 06/23/19 04:31 20 154/101 (118) General Appearance: No Apparent Distress, WD/WN Allergies: Coded Allergies: No Known Drug Allergies (Unverified , 06/22/19) Discharge Summary Date of Admission June 22, 2019 at 14:53 Date of Discharge Discharge Date: June 23, 2019 Admission Diagnosis Assessment: Severe anemia with dyspnea Acute right DVT lower extremity h/o colitis but no medication for that condition Plan: Can't have contrast for CT angiogram and would not change treatment with anticoagulation Wants to leave AMA [facility] Surgery consult Tranfusion Discharge Diagnosis (1) Anemia (2) Right leg DVT Status: Acute Qualifiers: Qualified Codes: I82.401 - Acute embolism and thrombosis of unspecified deep veins of right lower extremity Clinical Quality Measures DVT/VTE Risk/Contraindication: Risk Factor Score Per Nursin RFS Level Per Nursing on Admit: 4+=Very High JENNIFER HAYS DO June 23, 2019 11:20
--- NOTE | 2019-06-23 21:13 | Consultation-Cardiology ---
HPI-Cardiology Cardiology Consultation: Date of Consultation 06/23/19 Date of Admission Attending Physician Alissa Hays DO Admitting Physician Isidro Justin - Chc Of Consulting Physician Alexa ANTONIO MD HPI: Time Seen by a Provider: 10:45 Chief Complaint: Shortness of breath This is a 48-year-old gentleman who presented to ER for possible right lower extremity swelling and shortness of breath. Patient was also found to be significantly anemic requiring transfusion. Patient also gave a history of abdominal discomfort. When I saw the patient he told me that he wants to get out of the hospital. He was diagnosed with right lower extremity DVT. He refused CT angios to rule out pulmonary embolism. However the primary team decided to treat him for pulmonary embolism based on confirmed right lower extremity DVT, hypoxia and shortness of breath. Patient denies active smoking. Denies significant family history. Review of Systems-Cardiology Review of Systems Constitutional: As described under HPI; No As described under HPI, No no s ymptoms reported, No chills, No fever, No lightheadedness Eyes: No As described under HPI, No no symptoms reported, No blindness, No blurred vision, No contact lenses, No drainage, No decreased acuity, No foreign body sensation, No pain, No vision change Ears/Nose/Throat: No As described under HPI, No no symptoms reported, No chronic hearing loss, No ear discharge, No ear pain, No nasal drainage, No ulcerations Respiratory: No no symptoms reported; As described under HPI; No As described under HPI, No cough; orthopnea; No shortness of breath, No SOB with excertion Cardiovascular: No no symptoms reported; As described under HPI; No As described under HPI, No chest pain, No edema, No irregular heart rate, No lightheadedness, No palpitations Gastrointestinal: No no symptoms reported, No As described under HPI, No abdomen distended, No abdominal pain, No blood streaked bowels, No constipation, No diarrhea, No nausea, No vomiting, No stool coloration changes Genitourinary: No As described under HPI, No burning, No dysuria, No discharge, No frequency, No flank pain, No hematuria, No urgency Musculoskeletal: other (right lower extremity swelling.) Skin: No rash, No skin related problems, No ulcerations Psychiatric/Neurological: No anxiety, No depression, No seizure, No focal weakness, No syncope Hematologic: No bleeding abnormalities PMT-Eigegs-Gzwgjs Hx Patient Social History Marrital Status: single Employed/Student: retired ([employer] pursuing disability) Alcohol Use: Denies Use Recreational Drug Use: No Smoking Status: Never a Smoker 2nd Hand Smoke Exposure: No Recent Foreign Travel: No Recent Infectious Disease Expo: No Hospitalization with Isolation: Denies Immunizations Up To Date Date of Pneumonia Vaccine: Nov 21, 2018 Past Medical History PMH As described under Assessment. Allergies and Home Medications Allergies Coded Allergies: No Known Drug Allergies (Unverified , 06/22/19) Home Medications Albuterol Sulfate 1 Puff Puff, 2 PUFF INH Q4H, (Reported) 1 PUFF = 90 MCG Apixaban 5 Mg Tablet, 5 MG PO BID TAKE 2 TABLETS BID X 7 DAYS, THEN 1 TABLET BID Prescribed by: ALISSA HAYS on 06/23/19 1119 Furosemide 20 Mg Tablet, 20 MG PO DAILY, (Reported) Patient Home Medication List Home Medication List Reviewed: Yes Physical Exam-Cardiology Physical Exam Vital Signs/I&O Capillary Refill : Less Than 3 Seconds Constitutional: appears stated age, AAO x 3; No apparent distress; well- developed, well-nourished HEENT: PERRL; No discharge; hearing is well preserved, oral hygience is good; No ulceration, No xanthelasmas are seen Neck: No carotid bruit; carotid pulses are 2 + bilaterally Respiratory: chest is bilaterally symmetric, lungs clear to auscultation; No crackles, No rhonchi, No rales, No stridor, No wheezing; pleural rub Cardiovascular: regular rate-rhythm; No irregularly irregular, No extra beats, No parasternal heave is noted, No bradycardia, No tachycardia; S1 and S2; No gallop/S4, No diastolic murmur, No systolic murmur Gastrointestinal: distended, audible bowel sounds; No spleenomegaly Rectal: deferred Extremities: normal range of motion, non-tender, normal inspection, other (right lower extremity mild swelling.); No clubbing, No cyanosis, No significant edema Neurologic/Psychiatric: no motor/sensory deficits, alert, normal mood/affect, oriented x 3, power is 5/5 both on sides Skin: normal color, warm/dry; No rash, No ulcerations Data Review Labs A/P-Cardiology Assessment/Admission Diagnosis Right lower extremity DVT, Possible colitis, Possible pulmonary embolism, RV dysfunction, Pulmonary hypertension, Mild respiratory failure. Anemia, Acute mild diastolic congestive heart failure, Chronic kidney disease. Plan Right lower extremity DVT, Possible colitis, Possible pulmonary embolism, RV dysfunction, Pulmonary hypertension, Mild respiratory failure. Patient likely has pulmonary embolism due to the constellation of symptoms. Confirmed right lower extremity DVT with shortness of breath. Echocardiogram showed normal LV function with mild diastolic dysfunction with enlarged RV and decreased RV function. PA pressure of 45 mmHg. However the patient refused CT angiography or further testing for pulmonary embolism. Therefore he was started on treatment for presumptive PE. He was started on Eliquis. I also spoke to him and requested that he follows up with his primary care physician and with cardiology as an outpatient. However he was not very convinced and I'm not sure that he will follow. Anemia: Defer to the primary team. Mild acute diastolic congestive heart failure. He was given Lasix. Echocardiogram showed normal LV function with mild to moderate diastolic dysfunction. Elevated BNP could also be due to RV dysfunction as well. Chronic kidney disease. Defer to the primary team. Thank you for your consultation. Please call me if you have any questions. Robert Antonio MD, FACP, FACC, FSCAI, FHRS, CCDS Interventional Cardiology Cardiac Electrophysiology Vascular Medicine and Endovascular Interventions Clinical Quality Measures DVT/VTE Risk/Contraindication: Risk Factor Score Per Nursin RFS Level Per Nursing on Admit: 4+=Very High Alexa ANTONIO MD June 23, 2019 21:13
== END 2019-06-23 12:35 | disposition home or self-care (01) | DRG 299 ==
LOC: EDUNIT# 13:54 → ER 13:55 → ICU 14:53
PROVIDERS: ADMIT Internal Medicine; ATTEND Internal Medicine
DX: I82.411 Acute embolism and thrombosis of right femoral vein (principal); I82.431 Acute embolism and thrombosis of right popliteal vein; I26.99 Other pulmonary embolism without acute cor pulmonale; J96.90 Respiratory failure, unspecified, unspecified whether with hypoxia or hypercapnia; I13.0 Hypertensive heart and chronic kidney disease with heart failure and stage 1 through stage 4 chronic kidney disease, or unspecified chronic kidney disease; I50.31 Acute diastolic (congestive) heart failure; N18.9 Chronic kidney disease, unspecified; I27.20 Pulmonary hypertension, unspecified; D64.9 Anemia, unspecified; K52.9 Noninfective gastroenteritis and colitis, unspecified; J44.9 Chronic obstructive pulmonary disease, unspecified
CPT/HCPCS: 36415; 71045; 80053; 82728; 83540; 83880; 84484; 85014; 85018; 85025; 85379; 85610; 86850; 86900; 86901; 86920; 93005; 93306; 94640